=== PATIENT | female | born 2000 | race African-American/Black ===

== ENCOUNTER 2019-09-20 23:57 | Emergency (ER) | payer MEDICAID, OTHER ==
[~2019-09-20] VITALS: Ht 160 cm; Wt 59.0 kg
[2019-09-21 00:18] VITALS: BP 127/68
[2019-09-21] MEDS ORDERED: IBUPROFEN 800 MG TAB PO ONE (03:00)
== END 2019-09-21 05:13 | disposition home or self-care (01) ==
LOC: EDBD 23:57 → ER 23:59
DX: S43.402A Unspecified sprain of left shoulder joint, initial encounter (principal); S00.03XA Contusion of scalp, initial encounter; S09.90XA Unspecified injury of head, initial encounter; Y08.89XA Assault by other specified means, initial encounter; Y93.89 Activity, other specified; Y92.89 Other specified places as the place of occurrence of the external cause; Y99.8 Other external cause status
CPT/HCPCS: 70450; 73030